=== PATIENT | female | born 1980 | race Caucasian/White ===

== ENCOUNTER 2017-06-11 16:07 | Emergency (ER) | payer MEDICAID ==
--- NOTE | 2017-06-11 16:32 | ERPHSYRPT ---
- History of Present Illness Time Seen by Provider: 06/11/17 16:19 Source: family Exam Limitations: other (mentally challenged) Physician History: Pt underwent Ventricular shunt placement 2 years ago, noticed a small scab and suture hanging out today. She denies headaches, fever, vomiting, or other complaints. Quality: itchy Severity: mild Location: scalp Possible Causes: no cause identified Associated Symptoms: denies symptoms - Review of Systems Constitutional: No Symptoms - Past Medical History Neurological History: Other Cardiac History: No Pertinent History Respiratory History: No Pertinent History Endocrine Medical History: No Pertinent History Musculoskeletal History: No Pertinent History, Other Other Medical History: HYDROCEPHALUS, SZ HX, SHUNT; NO RECENT ORTHO SURGERIES. - Physical Exam General Appearance: no apparent distress Eye Exam: eyes nml inspection Ears, Nose, Throat Exam: normal ENT inspection Neck Exam: normal inspection Respiratory Exam: normal breath sounds, lungs clear Cardiovascular Exam: regular rate/rhythm, normal heart sounds Gastrointestinal/Abdomen Exam: soft, No tenderness Back Exam: normal inspection Extremity Exam: normal inspection Neurologic Exam: alert, cooperative, normal mood/affect Skin Exam: normal color, warm, dry, other (surgical wound healed on the left temporal area, suture is hanging out, removed at once with scissors, no bleeding , no sign of infection.) SpO2 Interpretation: normal Oxygen Delivery: Room Air - Course Nursing assessment & vital signs reviewed: Yes - Progress Progress: unchanged - Departure Time of Disposition: 16:31 Departure Disposition: Home Clinical Impression: Visit for wound check Condition: Stable Critical Care Time: No Referrals: FAISAL NEGRETE [Primary Care Provider] - Instructions: Stitches Additional Instructions: Return if severe pain, redness, discharge or fever> 102 F!
[2017-06-11 16:33] VITALS: BP 91/59; PULSE 80; O2SAT 100
[2017-06-11] MEDS ORDERED: BACIGUENT PACKET TP ONE (16:35)
[2017-06-11] MEDS ORDERED: BACIGUENT PACKET ONE (16:36)
== END 2017-06-11 16:40 | disposition home or self-care (01) ==
LOC: ED 16:07
DX: Z03.89 Encounter for observation for other suspected diseases and conditions ruled out (principal)
CPT/HCPCS: 99282; 99283; A9270-GY

== ENCOUNTER 2022-10-22 19:36 | Emergency (ER) | payer MEDICAID ==
[2022-10-22] MEDS ORDERED: Ativan 2 MG/1 ML VIAL ONE (19:45)
[2022-10-22] MEDS ORDERED: Keppra 500 MG/5 ML ONE (19:50)
[2022-10-22] MEDS ORDERED: Ativan 2 MG/1 ML VIAL IV ONE (19:50)
[2022-10-22] MEDS ORDERED: Sodium Chloride 0.9% 1000 ML 1,000 ML IV STA (19:50)
[2022-10-22] MEDS ORDERED: Zofran 4 MG/2 ML VIAL IV ONE (19:50)
[2022-10-22] MEDS ORDERED: Keppra 500 MG/5 ML*** 1,000 MG in D5w 100ML Mini Bag 100 ML 100 ML IV ONE ×4 (19:50)
[2022-10-22] MEDS ORDERED: D5w 100ML Mini Bag 100 ML 100 ML IV ONE (19:52)
[2022-10-22] MEDS ORDERED: Sodium Chloride 0.9% 1000 ML 1,000 ML ONE (19:58)
[2022-10-22] MEDS ORDERED: Zofran 4 MG/2 ML VIAL ONE (19:58)
[2022-10-22 20:11] LABS: Absolute Neutrophil Ct (ANC) 7.64 x10^3/uL (1.4-6.9); BASOPHIL % 0.2 % (0.0-0.4); Basophil (Absolute #) 0.02 x10^3/uL (0-0.4); Eosinophil % 0.4 % (0.00-5.0); Eosinophil (Absolute #) 0.04 x10^3/uL (0-0.5); Hematocrit 41.1 % (35-47); Hemoglobin 13.2 g/dL (12.0-16.0); IMMATURE GRAN # 0.04 x10^3u/L (0.00-0.03); IMMATURE GRAN % 0.4 % (0.00-0.4); Lymphocyte (Absolute #) 1.51 x10^3/uL (1.0-4.6); Lymphocytes % 15.7 % (24.0-44.0); Mean Cell Volume 93.4 fL (78-100); Mean Corpuscular Hgb Concent. 32.1 g/dL (32-36); Mean Platelet Volume 8.6 fL (7.5-11.0); Monocyte (Absolute #) 0.35 x10^3/uL (0.0-1.3); Monocytes % 3.6 % (0.0-12.0); Neutrophil % 79.7 % (36.0-66.0); Platelet Count 395 x10^3/uL (150-450); Red Cell Distribution Width 12.1 % (11.5-14.0); White Blood Count 9.6 x10^3/uL (4.0-10.5)
[2022-10-22 20:31] VITALS: TEMP 98.2
[2022-10-22 20:33] LABS: ALBUMIN 4.3 g/dL (3.5-5.0); ALKALINE PHOSPHATASE 114 U/L (38-126); BLOOD UREA NITROGEN 9 mg/dL (7-17); CHLORIDE 101 mmol/L (98-107); Calcium 9.1 mg/dL (8.4-10.2); Carbon Dioxide 17 mmol/L (22-30); Creatinine 1 0.59 mg/dL (0.52-1.04); EST GLOMERULAR FILTRATION RATE > 60.0 ML/MIN; Glucose 144 mg/dL (74-106); Potassium 4.2 mmol/L (3.5-5.1); SGOT/AST 25 U/L (14-36); SGPT/ALT 25 U/L (0-35); SODIUM 136 mmol/L (137-145)
[2022-10-22] MEDS ORDERED: TYLENOL EXTRA STRENGTH 500 MG PO ONE (21:46)
[2022-10-22] MEDS ORDERED: TYLENOL EXTRA STRENGTH 500 MG ONE (21:48)
--- NOTE | 2022-10-22 23:34 | ERPHSYRPT ---
- History of Present Illness Source: family, EMS Exam Limitations: clinical condition Patient Subjective Stated Complaint: per caregiver, pt had seizure activity lasting approx 2 min while at home. ems states pt postictal on their arrival to pt. pt has hx of seizures. caregiver states no seizures in over a year. Triage Nursing Assessment: pt arrive per ambualnce and transfers to stretcher assist of 4. respirations nonalbored. pt wakes to voice. speech slow and slurred at this time. pupils equal and reactive. pt moves bilat upper and lower ext per her normal. Hx Tetanus, Diphtheria Vaccination/Date Given: Yes Hx Influenza Vaccination/Date Given: No Hx Pneumococcal Vaccination/Date Given: No Immunizations Up to Date: Yes - History of Present Illness Time Seen by Provider: 10/22/22 19:38 Physician History: 42-year-old female with a history of spina bifid, ventricular shunt placements bilaterally, seizure disorder, anxiety, obesity was brought in the ER with chief complaint of seizure prior to arrival which lasted for almost 2 to 3 minutes and patient was postictal on EMS arrival. Patient is awake alert on presentation, moving all 4 extremities. She did have another seizure on presentation in the ER generalized tonic-clonic with no loss of bowel or bladder control. She did not bite her tongue. She is given Ativan 2 mg IV which helped and started on loading dose of 1 g Keppra. Per sister patient seizure is well controlled and had a seizure like this almost a year ago and a brief episode 3 months ago for which she did not need to seek medical attention. (ONEL NEGRO) Allergies/Adverse Reactions: amoxicillin Allergy (Verified 10/22/22 20:07) latex Allergy (Verified 10/22/22 20:07) Home Medications: Brivaracetam [Briviact] 100 mg PO BID 08/28/22 [History] Ergocalciferol (Vitamin D2) [Vitamin D2] 1.25 mg PO WEEKLY 08/28/22 [History] Famotidine 20 mg [Pepcid 20 MG] 40 mg PO HS 08/28/22 [History] Furosemide 20 mg [Lasix 20 mg] 20 mg PO DAILY PRN 08/28/22 [History] Venlafaxine HCl ER 75 mg [Effexor XR 75 MG] 75 mg PO BID 08/28/22 [History] Travel Risk - International Travel Have you traveled outside of the country in past 3 weeks: No - Coronavirus Screening Are you exhibiting any of the following symptoms?: No Close contact with a COVID-19 positive Pt in past 14-21 Days: No - Vaccine Status Have you recieved a Covid-19 vaccination: Yes [place] Ironer: Moderna - Vaccination Dates Date of 2cond Vaccination (if applicable): 2020 - Review of Systems All Other Systems: Unable due to condition - Past Medical History Pertinent Past Medical History: Yes Neurological History: Epilepsy, Seizures, Other Cardiac History: No Pertinent History Respiratory History: No Pertinent History Endocrine Medical History: No Pertinent History Musculoskeletal History: No Pertinent History, Other Other Medical History: HYDROCEPHALUS, SZ HX, SHUNT; NO RECENT ORTHO SURGERIES. born with spina bifida - Past Surgical History Past Surgical History: Yes Neuro Surgical History: Brain Shunt Cardiac: No Pertinent History Respiratory: No Pertinent History Gastrointestinal: No Pertinent History Genitourinary: No Pertinent History Musculoskeletal: Orthopedic Surgery Female Surgical History: No Pertinent History Other Surgical History: brain shunt revision X's 3. cyst to left ventricle. spine closure. dental surgeries. muscles lengthened to lower extremities. bilat feet - Social History Smoking Status: Never smoker Exposure to second hand smoke: Yes Drug Use: none Patient Lives Alone: No - Female History Hx Last Menstrual Period: last week Hx Now: No - [place] Coma Scale Best Eye Response ([place]): (4) open spontaneously Best Verbal Response ([place]): (5) oriented Best Motor Response ([place]): (6) obeys commands [place] Total: 15 - Physical Exam General Appearance: no apparent distress, alert Eye Exam: bilateral eye: normal inspection, PERRL, EOMI Ears, Nose, Throat Exam: normal ENT inspection, TMs normal, pharynx normal, moist mucous membranes Neck Exam: normal inspection, non-tender, full range of motion Respiratory: normal breath sounds, lungs clear Cardiovascular: normal heart sounds, tachycardia Gastrointestinal: soft, normal bowel sounds, No tenderness Extremity Exam: normal range of motion, pelvis stable Mental 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, 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 Exam: normal hearing, normal speech (At her baseline), No facial asymmetry, No facial droop Motor/Sensory: no motor deficit, no sensory deficit Skin Exam: normal color SpO2 Interpretation: normal SpO2: 98 O2 Delivery: Room Air - Nursing Vital Signs Nursing Vital Signs: Initial Vital Signs Temperature 98.2 F 10/22/22 20:12 Pulse Rate 125 H 10/22/22 20:12 Respiratory Rate 22 10/22/22 20:12 Blood Pressure 156/111 10/22/22 20:12 O2 Sat by Pulse Oximetry 98 10/22/22 20:12 Pain Scale Pain Intensity 0 - Course EKG Interpreted by Me: RATE (94 junctional rhythm), Left [place] Deviation, Non- specific ST Changes, Other (Short [place] interval) Ordered Tests: Active Orders 24 hr Category Date Time Status Water Taxi Operator STAT Care 10/22/22 19:51 Active IV Insertion STAT Care 10/22/22 19:50 Active NPO (ED) STAT Care 10/22/22 19:50 Active Oxygen-ED Only Nasal Cannula 2 lpm Care 10/22/22 19:50 Active POCT Glucose Check STAT Care 10/22/22 19:50 Active Tele-Health Consult ROUTINE Cons 10/23/22 06:25 Active CHEST 1 VIEW (PORTABLE) Stat Exams 10/22/22 20:24 Completed HEAD WITHOUT CONTRAST [CT] Stat Exams 10/22/22 20:24 Completed BLOOD CULTURE Stat Lab 10/22/22 19:50 Received CBC W DIFF Stat Lab 10/22/22 20:09 Completed CMP Stat Lab 10/22/22 20:15 Completed Lactic Acid Stat Lab 10/22/22 20:00 Completed MAG [MAGNESIUM] Stat Lab 10/22/22 20:09 Completed UA W/RFX UR CULTURE Stat Lab 10/22/22 22:36 Completed Medication Summary Discontinued Medications Generic Name Dose Route Start Last Admin Trade Name Gera PRN Reason Stop Dose Admin Acetaminophen 1,000 mg 10/22/22 21:46 10/22/22 21:55 Acetaminophen 500 Mg Tablet PO 10/22/22 21:47 1,000 mg STAT ONE Administration Acetaminophen Confirm 10/22/22 21:48 Acetaminophen 500 Mg Tablet Administered 10/22/22 21:49 Dose 1,000 mg .ROUTE .STK-MED ONE Levetiracetam 1,000 mg/ 110 mls @ 220 mls/hr 10/22/22 19:50 10/22/22 19:55 Dextrose IV 10/22/22 20:19 220 mls/hr STAT ONE Administration Sodium Chloride 1,000 mls @ 999 mls/hr 10/22/22 19:50 10/23/22 07:25 Sodium Chloride 0.9% 1000 Ml IV 10/22/22 20:50 Infused .Q1H1M STA Infusion Levetiracetam 1,000 mg/ 110 mls @ 400 mls/hr 10/22/22 19:50 10/22/22 20:39 Dextrose IV 10/22/22 20:06 Not Given STAT ONE Dextrose Confirm 10/22/22 19:52 D5w 100ml Mini Bag 100 Ml Administered 10/22/22 19:53 Dose 100 mls @ ud IV .STK-MED ONE Sodium Chloride Confirm 10/22/22 19:58 Sodium Chloride 0.9% 1000 Ml Administered 10/22/22 19:59 Dose 1,000 mls @ ud .ROUTE .STK-MED ONE Valproate Sodium 500 mg/ 105 mls @ 210 mls/hr 10/22/22 23:40 10/23/22 00:07 Sodium Chloride IV 10/23/22 00:09 210 mls/hr STAT ONE Administration Sodium Chloride Confirm 10/22/22 23:58 Sodium Chloride 0.9% Administered 10/22/22 23:59 Dose 100 mls @ ud .ROUTE .STK-MED ONE Valproate Sodium 250 mg/ 102.5 mls @ 210 mls/hr 10/23/22 06:38 10/23/22 06:54 Sodium Chloride IV 10/23/22 07:07 210 mls/hr STAT ONE Administration Sodium Chloride Confirm 10/23/22 06:40 Sodium Chloride 0.9% Administered 10/23/22 06:41 Dose 100 mls @ ud .ROUTE .STK-MED ONE Levetiracetam Confirm 10/22/22 19:50 Levetiracetam 500 Mg/5 Ml Vial Administered 10/22/22 19:51 Dose 1,000 mg .ROUTE .STK-MED ONE Lorazepam Confirm 10/22/22 19:45 Lorazepam 2 Mg/1 Ml 2 Mg Vial Administered 10/22/22 19:46 Dose 2 mg .ROUTE .STK-MED ONE Lorazepam 2 mg 10/22/22 19:50 10/22/22 19:48 Lorazepam 2 Mg/1 Ml 2 Mg Vial IV 10/22/22 19:51 2 mg STAT ONE Administration Ondansetron HCl 4 mg 10/22/22 19:50 10/22/22 20:02 Ondansetron Hcl 4 Mg/2 Ml Vial IV 10/22/22 19:51 4 mg STAT ONE Administration Ondansetron HCl Confirm 10/22/22 19:58 Ondansetron Hcl 4 Mg/2 Ml Vial Administered 10/22/22 19:59 Dose 4 mg .ROUTE .STK-MED ONE Valproate Sodium Confirm 10/22/22 23:58 Valproate Sodium 100 Mg/Ml 5ml Injection Administered 10/22/22 23:59 Dose 500 mg IV .STK-MED ONE Valproate Sodium Confirm 10/23/22 06:40 Valproate Sodium 100 Mg/Ml 5ml Injection Administered 10/23/22 06:41 Dose 500 mg IV .STK-MED ONE Lab/Rad Data: Laboratory Result Diagrams 10/22/22 20:09 10/22/22 20:15 Laboratory Results 10/22/22 10/22/22 10/22/22 Range/Units 22:36 20:15 20:09 WBC (4.0-10.5) x10^3/uL RBC (4.1-5.4) x10^6/uL Hgb (12.0-16.0) g/dL Hct (35-47) % MCV (78-100) fL MCH (26-32) pg MCHC (32-36) g/dL RDW (11.5-14.0) % Plt Count (150-450) x10^3/uL MPV (7.5-11.0) fL Gran % (36.0-66.0) % Immature Gran % (Auto) (0.00-0.4) % Nucleat RBC Rel Count (0.00-0.1) % Eos # (Auto) (0-0.5) x10^3/uL Immature Gran # (Auto) (0.00-0.03) x10^3u/L Absolute Lymphs (auto) (1.0-4.6) x10^3/uL Absolute Monos (auto) (0.0-1.3) x10^3/uL Absolute Nucleated RBC (0.00-0.01) x10^3u/L Lymphocytes % (24.0-44.0) % Monocytes % (0.0-12.0) % Eosinophils % (0.00-5.0) % Basophils % (0.0-0.4) % Absolute Granulocytes (1.4-6.9) x10^3/uL Basophils # (0-0.4) x10^3/uL Sodium 136 L (137-145) mmol/L Potassium 4.2 (3.5-5.1) mmol/L Chloride 101 (98-107) mmol/L Carbon Dioxide 17 L (22-30) mmol/L Anion Gap 23.0 H (5-15) MEQ/L BUN 9 (7-17) mg/dL Creatinine 0.59 (0.52-1.04) mg/dL Estimated GFR > 60.0 ML/MIN Glucose 144 H (74-106) mg/dL Lactic Acid (0.4-2.0) Calcium 9.1 (8.4-10.2) mg/dL Magnesium 2.0 (1.6-2.3) mg/dL Total Bilirubin 0.30 (0.2-1.3) mg/dL AST 25 (14-36) U/L ALT 25 (0-35) U/L Alkaline Phosphatase 114 (38-126) U/L Serum Total Protein 8.0 (6.3-8.2) g/dL Albumin 4.3 (3.5-5.0) g/dL Urine Color Yellow (Yellow) Urine Appearance Clear (Clear) Urine pH 7.0 (4.6-8.0) Ur Specific Maddock <=1.005 (1.005-1.030) Urine Protein Negative (Negative) Urine Glucose (UA) Negative (Negative) mg/dL Urine Ketones Negative (Negative) Urine Blood Negative (Negative) Urine Nitrite Negative (Negative) Urine Bilirubin Negative (Negative) Urine Urobilinogen 0.2 (0.2) mg/dL Ur Leukocyte Esterase Trace A (Negative) U Hyaline Cast (Auto) NONE SEEN (0-2) /LPF Urine Microscopic RBC 0-2 (0-5) /HPF Urine Microscopic WBC 0-2 (0-5) /HPF Ur Epithelial Cells None Seen (None Seen) /HPF Urine Bacteria None Seen (None Seen) /HPF Urine Culture Reflexed NO (NO) 10/22/22 10/22/22 Range/Units 20:09 20:00 WBC 9.6 (4.0-10.5) x10^3/uL RBC 4.40 (4.1-5.4) x10^6/uL Hgb 13.2 (12.0-16.0) g/dL Hct 41.1 (35-47) % MCV 93.4 (78-100) fL MCH 30.0 (26-32) pg MCHC 32.1 (32-36) g/dL RDW 12.1 (11.5-14.0) % Plt Count 395 (150-450) x10^3/uL MPV 8.6 (7.5-11.0) fL Gran % 79.7 H (36.0-66.0) % Immature Gran % (Auto) 0.4 (0.00-0.4) % Nucleat RBC Rel Count 0.0 (0.00-0.1) % Eos # (Auto) 0.04 (0-0.5) x10^3/uL Immature Gran # (Auto) 0.04 H (0.00-0.03) x10^3u/L Absolute Lymphs (auto) 1.51 (1.0-4.6) x10^3/uL Absolute Monos (auto) 0.35 (0.0-1.3) x10^3/uL Absolute Nucleated RBC 0.00 (0.00-0.01) x10^3u/L Lymphocytes % 15.7 L (24.0-44.0) % Monocytes % 3.6 (0.0-12.0) % Eosinophils % 0.4 (0.00-5.0) % Basophils % 0.2 (0.0-0.4) % Absolute Granulocytes 7.64 H (1.4-6.9) x10^3/uL Basophils # 0.02 (0-0.4) x10^3/uL Sodium (137-145) mmol/L Potassium (3.5-5.1) mmol/L Chloride (98-107) mmol/L Carbon Dioxide (22-30) mmol/L Anion Gap (5-15) MEQ/L BUN (7-17) mg/dL Creatinine (0.52-1.04) mg/dL Estimated GFR ML/MIN Glucose (74-106) mg/dL Lactic Acid 11.1 H (0.4-2.0) Calcium (8.4-10.2) mg/dL Magnesium (1.6-2.3) mg/dL Total Bilirubin (0.2-1.3) mg/dL AST (14-36) U/L ALT (0-35) U/L Alkaline Phosphatase (38-126) U/L Serum Total Protein (6.3-8.2) g/dL Albumin (3.5-5.0) g/dL Urine Color (Yellow) Urine Appearance (Clear) Urine pH (4.6-8.0) Ur Specific Madd[place] (1.005-1.030) Urine Protein (Negative) Urine Glucose (UA) (Negative) mg/dL Urine Ketones (Negative) Urine Blood (Negative) Urine Nitrite (Negative) Urine Bilirubin (Negative) Urine Urobilinogen (0.2) mg/dL Ur Leukocyte Esterase (Negative) U Hyaline Cast (Auto) (0-2) /LPF Urine Microscopic RBC (0-5) /HPF Urine Microscopic WBC (0-5) /HPF Ur Epithelial Cells (None Seen) /HPF Urine Bacteria (None Seen) /HPF Urine Culture Reflexed (NO) - Progress Progress: improved, re-examined Discussed with : Lane Counseled pt/family regarding: lab results, diagnosis, need for follow-up, rad results, smoking cessation - Progress Progress Note: 10/22/22 23:20 42-year-old female with a history of spina bifid, ventricular shunt placements bilaterally, seizure disorder, anxiety, obesity was brought in the ER with chief complaint of seizure prior to arrival which lasted for almost 2 to 3 minutes and patient was postictal on EMS arrival. Patient is awake alert on presentation, moving all 4 extremities. She did have another seizure on presentation in the ER generalized tonic-clonic with no loss of bowel or bladder control. She did not bite her tongue. She is given Ativan 2 mg IV which helped and started on loading dose of 1 g Keppra. Per sister patient seizure is well controlled and had a seizure like this almost a year ago and a brief episode 3 months ago for which she did not need to seek medical attention. She is given fluids. Patient gradually out of postictal phase and back to her baseline. She is complaining of headache, given Tylenol and feeling better. Tachycardia improved. She is not in any distress. Maintaining oxygen saturation around 98% on room air. CT head did not show any acute findings but old changes and bilateral shunts in place. Normal white count, chemistries showed elevated gap and a lactate of 11 which is secondary to recent seizures. We will recheck after fluids. Chest x-ray negative for any acute cardiopulmonary findings reviewed by me, official report is pending. I have obtain SOC tele neuro consult, neurologist recommended starting her Vimpat and transfer to facility with neurology in-house and neurosurgery close by because of her shunts. No Vimpat is available and he recommended giving Depacon 500 mg IV once and then 250 mg IV every 6 hours. Also if have again seizure can give a loading dose of 1 g Depacon. No neurology services are available in [facility], [facility] is at full capacity, I have discussed results of work-up and neurology recommendation with patient and family and need for transfer and after discussion in length they are agreeable. 10/22/22 23:33 [facility] center is called. 10/22/22 23:[address] Wilkinson hospitalist at [facility] as no beds are available at [facility] and neurology is in-house. I have reviewed history, work-up, tele neuro recommendations, agreed/accepted transfer. (ONEL NEGRO) 10/23/22 08:01 Patient care was transferred to ma at shift change, approximately 7 AM. I went in to the patient's room and evaluated her and discussed with the medical power of concrete products machine operator, what her plan was for this patient. Patient is medically stable at this time. I reiterated the teleneurologist recommendation of being transferred to a facility where there is both neurology and neurosurgery. The medical power of concrete products machine operator is aware of this. I also discussed the only place found at this time was in [facility] and the likely form of transport would be via medical air transport. The medical power of concrete products machine operator is not wanting the patient to be transferred via medical air transport. She prefers to leave AGAINST MEDICAL ADVICE and take the patient to [facility]. I did discuss with her the fact that [facility] may or may not have neurology service available today and they do not have neurosurgery. She is waiting to discuss with the insurance company who provides her and the patient with monetary assistance in this patient's care. She is wanting to determine whether leaving AGAINST MEDICAL ADVICE will somehow delete future monetary assistance. I also discussed with her about the possibility of transferring the patient to [place]. However, this may require waiting several hours before a bed becomes available and transportation is available. I also emphasized that we at [facility], are not equipped from the neurological or neurosurgery standpoint to assess or intervene as recommended by the teleneurologist. 10/23/22 08:43 We contacted 2 separate medical air transport services. Both say, at this time, there is a low visibility. They will reassess in 2 hours. In the meantime, tod cheung currently is medically stable. We will re attempt to secure ground transport if possible. 10/23/22 12:13 We just obtained confirmation that [facility], medical air transportation, will be arriving at approximately 20 minutes. (FAVIOLA HUNTER) Medical Desision Making - Independent Historian Additional History obtained from: Relative/friend - Discussion of managment Care discussed with:: specialist (Neurologist, hospitalist) Reviewed:: Test results Agreed on:: Treatment plan Will see patient: in hospital - Diagnostic Testing Diagnostic test were ordered, analyzed, and reviewed by me: Yes Radiological Interpretation: Interpreted by me, Reviewed by me, Teleradiologist Report - Risk of complications The pt has a high risk of morbidity or mortality based on: Decision regarding hospitilization or escalation of hosp level of care - Departure Departure Disposition: Transfer Critical Care Time: Yes Critical Care Time(excluding separately billable procedures): Critical 30-74 mins - Departure Clinical Impression: Recurrent seizures Condition: Stable Referrals: LANE RITTER NP [Primary Care Provider] - Follow up/PCP as directed
[2022-10-22] MEDS ORDERED: Depacon 500 MG/5 ML*** 500 MG in Sodium Chloride 0.9% 100 ML IV ONE (23:40)
[2022-10-22] MEDS ORDERED: Sodium Chloride 0.9% 100 ML ONE (23:58)
[2022-10-22] MEDS ORDERED: Depacon 500 MG/5 ML IV ONE (23:58)
[2022-10-23 02:04] LABS: Appearance Clear (Clear); Bacteria None Seen /HPF (None Seen); Bilirubin Negative (Negative); Blood Negative (Negative); Epithelial Cells None Seen /HPF (None Seen); Glucose, Urine Negative (Negative); Hyaline Casts NONE SEEN /LPF (0-2); Ketones Negative (Negative); Leukocyte Esterase Trace (Negative); Nitrite Negative (Negative); Protein,Urine Dip Negative (Negative); RBC 0-2 /HPF (0-5); Specific Gravity <=1.005 (1.005-1.030); Urobilinogen 0.2 mg/dL (0.2); WBC 0-2 /HPF (0-5)
[2022-10-23 02:27] LABS: ADD URINE CULTURE? NO (NO)
[2022-10-23] MEDS ORDERED: SODIUM CHLORIDE 0.9% IV ONE (06:38)
[2022-10-23] MEDS ORDERED: DEPACON IV ONE (06:38)
[2022-10-23] MEDS ORDERED: Sodium Chloride 0.9% 100 ML ONE (06:40)
[2022-10-23] MEDS ORDERED: Depacon 500 MG/5 ML IV ONE (06:40)
--- NOTE | 2022-10-23 08:38 | XRAY ---
Indication: Seizures. Comparison: None Portable apical lordotic chest underinflated accentuating cardiac silhouette. No focal infiltrate, consolidation, or large effusion. Bony thorax intact with mild double curvature thoracolumbar scoliosis and multiple overlying shunt catheters. Impression: Nonacute underinflated chest.
--- NOTE | 2022-10-23 08:40 | XRAY ---
Indication: Seizure. Multiple contiguous axial images obtained through the head without contrast. 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 Both cerebellar tonsils are again low-lying protruding through the foramen magnum. No acute intracranial hemorrhage, abnormal extra-axial fluid collection, or mass effect. Bony calvarium intact. Visualized paranasal sinuses and mastoid air cells are clear. Impression: Grossly stable CT head without contrast again demonstrating partial agenesis corpus callosum with 2 left ventricle shunt catheters in situ and low-lying cerebellar tonsils. No new/acute intracranial abnormalities.
[2022-10-23 12:57] VITALS: BP 115/71; PULSE 91; RESP 19; O2SAT 94
== END 2022-10-23 12:56 | disposition short-term general hospital (02) ==
LOC: ED 19:36
DX: G40.909 Epilepsy, unspecified, not intractable, without status epilepticus (principal); Q05.9 Spina bifida, unspecified; Z79.899 Other long term (current) drug therapy
CPT/HCPCS: 36000; 36415; 70450; 71045; 80053; 81001; 83605; 83735; 85025; 87040; 93041; 96365; 96367; 96374; 96375; 99285; 99291; J1953; J2060; J2405; A9270-GY